=== PATIENT | male | born 1990 | race Caucasian/White ===

== ENCOUNTER 2023-12-28 20:30 | Emergency (ER) | payer OTHER | END 2023-12-28 22:00 | disposition left against medical advice (07) | LOC: ER 20:37 | DX: R22.40 Localized swelling, mass and lump, unspecified lower limb (principal); Z53.21 Procedure and treatment not carried out due to patient leaving prior to being seen by health care provider ==

== ENCOUNTER 2024-05-27 00:28 | Emergency (ER) | payer OTHER ==
[~2024-05-27] VITALS: Ht 180.3 cm; Wt 77.1 kg
[2024-05-27] MEDS ORDERED: IBUPROFEN 600 MG TABLET ONE (01:24)
[2024-05-27] MEDS: IBUPROFEN 600 MG TABLET PO ONE (01:28)
[2024-05-27] MEDS ORDERED: CEPH500C2 PO (02:14)
[2024-05-27] MEDS ORDERED: NAPR-1009 PO (02:14)
[2024-05-27] MEDS ORDERED: SULF1TAB48 PO (02:14)
[2024-05-27 02:44] VITALS: BP 148/87; O2SAT 98
== END 2024-05-27 02:44 | disposition home or self-care (01) ==
LOC: ER 00:30
DX: S40.012A Contusion of left shoulder, initial encounter (principal); S50.02XA Contusion of left elbow, initial encounter; F17.200 Nicotine dependence, unspecified, uncomplicated; T81.49XA Infection following a procedure, other surgical site, initial encounter; Z79.899 Other long term (current) drug therapy; W18.39XA Other fall on same level, initial encounter; Y93.89 Activity, other specified; Y92.89 Other specified places as the place of occurrence of the external cause; Y99.8 Other external cause status
CPT/HCPCS: 73000; 73070; A4606; A4663

== ENCOUNTER 2024-07-13 00:53 | Emergency (ER) | payer OTHER ==
[~2024-07-13] VITALS: Ht 180.3 cm; Wt 77.1 kg
[~2024-07-13 00:53] MED LIST: CEPH500C2 PO; NAPR-1009 PO; SULF1TAB48 PO
[2024-07-13] MEDS ORDERED: CEFTRIAXONE /D5W 50ML IVPB **ER PYXIS IV ONE (02:51)
[2024-07-13] MEDS ORDERED: KETOROLAC TROMETHAMINE 30 MG INJ ONE (02:51)
[2024-07-13] MEDS: KETOROLAC TROMETHAMINE 30 MG INJ IVP ONE (03:00)
[2024-07-13] MEDS: CEFTRIAXONE 1 G in IV DEXTROSE 5% 50 ML IV ONE (03:05)
[2024-07-13 03:18] LABS: BASOPHILS # (AUTO) 0.1 K/UL (0.0-0.2); BASOPHILS % (AUTO) 0.4 % (0.0-2.0); EOSINOPHILS # (AUTO) 0.2 K/uL (0.0-0.7); EOSINOPHILS % (AUTO) 1.2 % (0.0-7.0); HEMOGLOBIN 13.2 g/dL (12.5-16.3); LYMPHOCYTES # (AUTO) 1.9 K/uL (0.8-4.8); LYMPHOCYTES % (AUTO) 12.3 % (20.5-51.5); MEAN CORPUSCULAR HEMOGLOBIN 30.9 uug (23.8-33.4); MEAN CORPUSCULAR HGB CONC 34 g/dL (32.5-36.3); MEAN CORPUSCULAR VOLUME 91.4 fL (73.0-96.2); MONOCYTES # (AUTO) 1.6 K/uL (0.1-1.30); MONOCYTES % (AUTO) 10.3 % (0.0-11.0); NEUTROPHILS # (AUTO) 11.8 K/uL (1.8-8.9); NEUTROPHILS % (AUTO) 75.8 % (38.5-71.5); PLATELET COUNT (AUTO) 197 K/uL (152-348); RED BLOOD CELL COUNT(AUTO) 4.26 MIL/uL (4.06-5.63); RED CELL DISTRIBUTION WIDTH 13.2 % (12.1-16.2); WHITE BLOOD COUNT (AUTO) 15.6 K/uL (3.6-10.2)
[2024-07-13 04:01] LABS: ALBUMIN 3.3 g/dL (3.4-5.0); BILIRUBIN,TOTAL 0.4 mg/dL (0.2-1.0); CALCIUM 9.1 mg/dL (8.5-10.1); POTASSIUM 3.8 mmol/L (3.5-5.1); TOTAL PROTEIN, SERUM 7.4 g/dL (6.4-8.2)
[2024-07-13] MEDS ORDERED: IOHEXOL 300MG/ML 100 ML INFUS..BTL ONE (04:34)
[2024-07-13] MEDS ORDERED: SWABABLE VALVE TRANSFER SET EA MC ONE (04:34)
[2024-07-13] MEDS ORDERED: IV NORMAL SALINE 250 ML IV ONE (04:34)
[2024-07-13 08:23] VITALS: BP 145/89; TEMP 98; O2SAT 98
== END 2024-07-13 08:24 | disposition left against medical advice (07) ==
LOC: ER 00:59
DX: L03.011 Cellulitis of right finger (principal); R51.9 Headache, unspecified; F17.200 Nicotine dependence, unspecified, uncomplicated; Z79.899 Other long term (current) drug therapy
CPT/HCPCS: 99285; 70450; 96365; 96375; 80053; 85025; 87040; 36415; 73130; 70486; 73201; J0696; J1885; Q9967; A4606; A4663